=== PATIENT | male | born 1970 | race Caucasian/White ===

== ENCOUNTER 2018-06-08 11:04 | Outpatient (REF) | payer BC, SELFPAY ==
[2018-06-09 10:39] LABS: PSA, Diagnostic 140.9 ng/ml (0-2.5)
== END 2018-06-08 11:24 ==
LOC: LBN 11:04
PROVIDERS: Internal Medicine; PCP Physician Assistant; Visit Provider Physician Assistant
DX: C61 Malignant neoplasm of prostate (principal)
CPT/HCPCS: 84153

== ENCOUNTER 2018-09-28 08:48 | Outpatient (CLI) | payer BC, SELFPAY | END 2018-09-28 09:08 | PROVIDERS: PCP Physician Assistant; Visit Provider Internal Medicine | DX: C61 Malignant neoplasm of prostate (principal); D64.81 Anemia due to antineoplastic chemotherapy; T45.1X5A Adverse effect of antineoplastic and immunosuppressive drugs, initial encounter | CPT/HCPCS: 36415; 80053; 84403; 86850; 86900; 86901; 86920; 82728; 84153; 85025 ==

== ENCOUNTER 2018-09-29 01:20 | Outpatient (RCR) | payer BC, SELFPAY ==
[2018-09-28 09:39] LABS: Abs Immature Grans 0.08 k/cumm (0.0-0.09); Absolute Basophil Count 0.01 k/cumm (0.0-0.2); Absolute Eosinophil Count 0.04 k/cumm (0.0-0.7); Absolute Lymphocyte Count 0.44 k/cumm (1.2-3.4); Absolute Monocyte Count 0.37 k/cumm (0.11-0.7); Basophils % 0.2; Eosinophils % 0.8; HCT 21.8 % (40.0-50.0); Immature Grans % 1.6; Lymphocytes % 8.7; Mean Corp. HGB Concentration 28.9 g/dL (32.0-36.0); Mean Corpuscular Hemoglobin 26.8 pg (27.0-33.0); Mean Corpuscular Volume 92.8 fL (80-95); Mean Platelet Volume 7.8 fL (8.0-11.0); Monocytes % 7.3; Neutrophils % 81.4; Platelet Count 191 x1000/uL (130-400); RBC 2.35 m/cumm (4.50-6.00); RBC Distribution Width 17.4 % (11.8-14.1); White Blood Cell Count 5.04 k/cumm (4.4-10.8)
[2018-09-28 09:44] LABS: HGB 6.3 g/dL (13.5-17.5)
[2018-09-28 09:51] LABS: Anisocytosis 1+; Diff Comment RBC Morph Reviewed; Hypochromasia 2+; Microcytosis 1+; Polychromasia Present
[2018-09-28 09:53] LABS: ALT 73 U/L (12-78); AST 42 U/L (15-37); Albumin 2.1 g/dL (3.4-5.0); Alkaline Phosphatase 262 U/L (46-116); Anion Gap 13.1 mmol/L (3-11); BUN 9 mg/dL (7-18); Bilirubin, Total 0.3 mg/dL (0.2-1.0); CO2 23.9 mmol/L (21.0-32.0); CREATININE 0.61 mg/dL (0.70-1.30); Calcium 8.3 mg/dL (8.5-10.1); Chloride 100 mmol/L (98-107); Glucose 123 mg/dL (70-100); Potassium 4.2 mmol/L (3.5-5.1); Sodium 137 mmol/L (136-145); Total Protein 6.5 g/dL (6.4-8.2)
[2018-09-28 12:23] LABS: Ferritin > 2000 ng/mL (8-388)
[2018-09-29] VITALS (11 sets, daily range): BP systolic 105–121; BP diastolic 66–74; PULSE 93–103; RESP 18; TEMP 36.3–36.7; O2SAT 96–99
[2018-09-29] MEDS: Normal Saline Flush 10 ML SYR IVP (12:00)
[2018-09-30 12:49] LABS: Testosterone, Total <7.0 ng/dL (240-950)
[2018-10-06 10:09] LABS: PSA, Diagnostic 199.6 ng/ml (0-2.5)
== END 2018-10-06 23:59 | disposition home or self-care (01) ==
LOC: INF 01:20
PROVIDERS: PCP Physician Assistant; Visit Provider Internal Medicine
DX: C61 Malignant neoplasm of prostate (principal); D64.9 Anemia, unspecified
CPT/HCPCS: 36415; 36430; 80053; 84403; 86850; 86900; 86901; 86920; 82728; 84153; 85025; P9016